=== PATIENT | male | born 1995 | race Caucasian/White ===

== ENCOUNTER 2021-05-15 06:39 | Observation (INO) | payer SELFPAY ==
[2021-05-15] VITALS (12 sets, daily range): BP systolic 106–186; BP diastolic 58–102; PULSE 72–108; RESP 14–18; TEMP 36.4–37.3; O2SAT 92–99; BMI 29.7; BMI 29.8
--- NOTE | 2021-05-15 | APP_PTH ---
PATIENT: GUALBERTO FLOWERS LOC: MS2 U#:[id number] AGE/SX: 25/M ROOM: [facility] [place] RE05/15/[address]: Dr. Latanya Miller MD : 1995 BED: 1 DIS: 05/16/2021 SPEC #: [id number] RECD: 05/15/21 14:51 STATUS: MARIA D REDeyanira #: [id number] VERA: 05/15/21 00:[address]: Latanya Miller DEPT: SURGICAL PATHOLOGY RECD BY: Benito Mccall ENTERED: 05/16/21 09:11 SP TYPE: APPENDIX OT DR: No Primary Care Phys Tissues: Appendix, NOS Procedures: Surgery Specimen Level III HEADER OPERATION: Laparoscopic appendectomy PRE-OP DIAGNOSIS: Acute appendicitis TISSUE SUBMITTED: Appendix MICROSCOPIC DIAGNOSIS Appendix, appendectomy: Appendix, negative for acute inflammation. See comment. MARC:eulalia 05/18/2021 COMMENT The entire appendix is examined. The lumen shows fecal material and hemorrhage. No evidence of acute inflammation in the mucosa, appendicular wall and periappendiceal adipose tissue. Clinical correlation and appropriate follow up are necessary. Case has been reviewed in consultation with Dr. Maldonado who concurs with the above diagnosis. IDC:AM MICROSCOPIC DESCRIPTION Slides are reviewed. GROSS DESCRIPTION Received in fixative is one container labeled with the patient's name and designated appendix. The specimen consists of an appendix measuring 7 cm in length and up to 0.5 cm in diameter. The attached periappendiceal adipose tissue measures up to 2.5 cm in width. The serosa is congested. No obvious perforation is identified. The mucosa is focally congested. The lumen is filled with fecal material. No fecalith is identified. District Branch Manager sections are submitted in one cassette. / MARC:eulalia 05/16/21 The rest of the appendix is submitted in two more cassettes, 2 & 3. / MARC:eulalia 05/17/21 TC:5 CPT: 58743
--- NOTE | 2021-05-15 07:07 | EDS_ITS ---
HPI HPI - GI History of Present Illness Chief Complaint: Abd Pain Detail of Chief Complaint: Nominal pain that started yesterday around 3 PM Informant: patient Abdominal Pain/Flank Pain Onset: Yesterday Current Severity: 02/20 Diarrhea/Melena/Hematochezia GI Symptom: Negative for Diarrhea, Melena and Hematochezia Narrative Narrative: Patient presents to the emergency department complaint of abdominal pain that started yesterday after eating lunch. Patient states that he ate [employer]. Pain is been continuous in the upper abdomen. Sometimes passing gas or belching will relieve the discomfort for short time but then it comes back. He denies nausea or vomiting. He denies fever. He denies reflux. Patient denies blood in stool or black tarry stool. He denies urinary symptoms. Patient has not had pain like this before. [facility] Medical History (Updated 05/15/21 @ 09:[address] Sharon Chaparro, DO) Polycystic kidney disease Home Medications cetirizine [Zyrtec] 10 mg PO DAILY 05/15/21 [History Last Taken Unknown] Allergy/AdvReac Type Severity Reaction Status Date / Time No Known Allergies Allergy Verified 05/15/21 06:40 Surgical History (Updated 05/15/21 @ 06:43 by Nanette Yañez) History of mandibular surgery Social History Smoking Status: Never smoker ROS [facility] ED Constitutional Constitutional ED: Reports systems reviewed and no addt'l complaints, except as documented; Denies body ache(s), change in weight or chills Eyes Eyes: Denies acute decrease in peripheral vision, change in vision, double vision or loss of vision ENT ENT ED: Reports none; Denies ear pain, lip swelling, loss taste/smell, neck pain, otalgia or sore throat Cardiovascular Cardiovascular: Reports none; Denies abdominal pain, chest pain with activity, leg edema, lightheadedness, palpitations, rapid heart rate or syncope Respiratory/Chest Respiratory/Chest: Reports none; Denies change in mental status, dry cough, dyspnea, hemoptysis, shortness of breath at rest or shortness of breath with exertion Gastrointestinal Gastrointestinal: Reports none and abdominal pain; Denies change in stool character, diarrhea, hematemesis, hematochezia, melena, rectal bleeding or vomiting Genitourinary Genitourinary ED: Reports none; Denies abdominal discomfort, anuria, dysuria, genital pain or polyuria Musculoskeletal Musculoskeletal: Reports none; Denies arthralgias, back pain, difficulty walking, extremity pain, muscle weakness or myalgias Integumentary Reports none; Denies abscess or rash Neurologic Neurologic: Reports none; Denies abnormal gait, confusion, focal weakness, frequent falls, headache(s), loss of vision, numbness, paresthesias, radicular pain, vertigo or weakness Psychiatric Psychiatric: Reports systems reviewed and no addt'l complaints, except as documented and none; Denies behavioral changes, confusion, difficulty concentrating, hallucinations, suicidal ideation, tactile hallucinations or visual hallucinations Endocrine Endocrinology: Denies none, cold intolerance, excessive sweating, fatigue or heat intolerance Hematologic/Lymphatic Hematologic/Lymphatic: Reports none; Denies anemia, easy bleeding or easy bruising Allergic/Immunologic Allergic/Immunologic ED: Denies as per HPI, none, lip swelling, mouth swelling, throat swelling, tongue swelling or hives EXAM Physical Exam Const Vital Signs: 05/15/21 06:40 Temperature 98 F Temperature Source Temporal Pulse Rate 95 Respiratory Rate 16 Blood Pressure 186/102 H Blood Pressure Mean 130 Pulse Ox 98 Positive well nourished and well developed General Appearance ED: well developed and NAD HEENT Reports TM's clear and moist mucous membranes normocephalic and atraumatic; Negative for trauma or tenderness Tympanic Membrane ED: Yes TM's clear Eyes PERRL and EOMs intact bilaterally General Eye ED: Negative for pale conjunctiva or scleral icterus Neck no lymphadenopathy, supple and no JVD General: Negative for tenderness Chest Wall inspection of chest normal and palpation of chest normal Chest: Negative for tenderness Resp normal respiratory effort and clear to auscultation bilaterally Effort and Inspection: Negative for respiratory distress or pain with movement Auscultation: Negative for rhonchi, wheezes or diminished lung sounds Cardio regular rate, regular rhythm, S1 normal heart sound, S2 normal heart sound and no murmurs Peripheral Pulses: pulses 2+ throughout GI normal to inspection, nondistended, normoactive bowel sounds, soft to palpation, non-distended and no masses GI Narrative: Patient has tenderness palpation over right upper quadrant with a positive Radnolph sign. Patient has guarding. Patient also with tenderness over the epigastric region. There is no rebound, rigidity, or peritoneal signs. Palpation: tender Back/Spine no CVA tenderness and no thoracic nor lumbar tenderness Extremity normal to inspection General Extremety ED: Negative for edema General Extremity: Negative for edema Neuro oriented x3, CN's II-XII intact bilaterally, no sensory deficits noted and gait normal Sensorium / Orientation: awake, alert, oriented to person, oriented to place and oriented to time Motor Exam: strength 5/5 throughout and strength abnormal Psych mental status grossly normal Skin no rashes or lesions noted and no wounds MDM MDM MDM Narrative Medical decision making narrative: IV line established on arrival. Patient was medicated with Zofran and 1 mg of Dilaudid. He did have good pain relief with that. CT scan was concerning for appendicitis with appendicolith and enlarged appendix. Patient also noted to have an elevated lipase and etiology is unclear as to why. Case discussed with general surgeon who will evaluate patient and take the OR for appendectomy. I was asked to give patient Zosyn and order a Covid rapid test. Lab Data Attestation: I reviewed the patient's lab results. Labs: Laboratory Results - last 24 hr 05/15/21 05/15/21 07:30 07:30 WBC 14.8 H RBC 4.79 Hgb 15.0 Hct 43.2 MCV 90.2 MCH 31.3 MCHC 34.7 RDW Std Deviation 38.1 RDW Coeff of Camille 11.5 L Plt Count 232 MPV 10.6 Immature Gran % (Auto) 0.400 Neut % (Auto) 78.8 H Lymph % (Auto) 10.6 L Tompkins % (Auto) 8.0 Eos % (Auto) 1.9 Baso % (Auto) 0.3 Absolute Neuts (auto) 11.6 H Absolute Lymphs (auto) 1.57 Nucleated RBC % 0 Sodium 138 Potassium 3.7 Chloride 106 Carbon Dioxide 30.0 Anion Gap 2 L BUN 12 Creatinine 0.90 Estim Creat Clear Calc 123.29 Est GFR (MDRD) Af Amer 129 Est GFR (MDRD) Non-Af 107 BUN/Creatinine Ratio 13.3 Glucose 114 H Calcium 8.6 Total Bilirubin 1.60 H AST 20 ALT 48 Alkaline Phosphatase 67 Total Protein 7.6 Albumin 4.0 Globulin 3.6 Albumin/Globulin Ratio 1.1 Lipase 2277 H Radiography Diagnostic Testing: Clinical Impression(s) from Imaging Studies Abdomen/Pelvis CT 05/15/21 07:07 IMPRESSION: Findings in keeping with the acute appendicitis. Calcified appendicolith is seen within the appendix. Small amount of free fluid is seen in the pelvis. Polycystic kidney disease. Nonobstructive calculus in the left kidney. Fatty infiltration of the liver. Electronically Signed: Prashanth Pace MD at 8:18 EDT , Service support , Discharge Plan Triage Chief Complaint: Abd Pain ED Provider: Sharon Chaparro Dx/Rx/DC Orders Clinical Impression: Abdominal pain, Acute appendicitis Prescriptions: No Action cetirizine [Zyrtec] 10 mg Tablet 10 mg PO DAILY RF: 0 Primary Care Provider: Care Physician,No Primary Referrals: Care Physician,No Primary [Primary Care Provider] - Disposition Disposition: Acute Care [facility]
--- NOTE | 2021-05-15 07:07 | CT_ITS ---
STUDY: CT ABDOMEN AND PELVIS WITHOUT CONTRAST REASON FOR EXAM: Male, 25 years old. Right-sided abdominal pain. History of polycystic kidney disease. RADIATION DOSAGE (If Supplied By Facility): CTDIvol = ( 13.90 ) mGy, DLP = ( 728.44 ) mGycm TECHNIQUE: Transaxial images were obtained from the dome of the diaphragm to the symphysis pubis without oral contrast, and without intravenous contrast. Sagittal and coronal images were reconstructed. Individualized dose optimization techniques were used for this CT. COMPARISON: None. FINDINGS: Mild degree of increased markings at the lung bases suggest some bibasilar atelectasis. The visualized portions of the heart are within normal limits. There is decreased attenuation of the liver consistent with steatosis. Normal gallbladder and extrahepatic biliary system. Normal spleen. Normal pancreas. Normal bilateral adrenal glands. Both kidneys are enlarged. Multiple cysts are seen in both kidneys in keeping with the patient''s history of polycystic kidney disease. No evidence of hydronephrosis. There is a 3 mm nonobstructive calculus in the lower pole calyx of the left kidney. There is a small hiatal hernia. Normal small intestine. Normal colon. There is a tubular, thick-walled appendix (>7mm), consistent with acute appendicitis. There is a 4.4 mm appendicolith in the appendix. Small lymph nodes are seen in the mesenteric fat in the right lower quadrant suggestive of mesenteric adenitis. Normal abdominal aorta. Normal inferior vena cava. Normal retroperitoneum. Normal urinary bladder. Small amount of free fluid is seen in the pelvis. Normal abdominal wall. Normal osseous structures. CT/Abdomen/Pelvis without Cont IMPRESSION: Findings in keeping with the acute appendicitis. Calcified appendicolith is seen within the appendix. Small amount of free fluid is seen in the pelvis. Polycystic kidney disease. Nonobstructive calculus in the left kidney. Fatty infiltration of the liver. Electronically Signed: Prashanth Pace MD at 8:18 EDT , Service support ,
[2021-05-15] MEDS: Ondansetron 4 MG/2 ML Vial IV (07:37)
[2021-05-15] MEDS: HYDROmorphone 1 MG/ML Syringe IV (07:37)
[2021-05-15] MEDS: 0.9% Normal Saline 1,000 ML 125 ML IV (07:38)
[2021-05-15 07:40] LABS: Absolute Lymphocyte Count 1.57 X10^3/uL (0.83-4.51); Absolute Neutrophil Count 11.6 X10^3/uL (2.0-7.7); Basophil# 0.04 X10^3/uL; Basophil% 0.3 % (0-1); Eosinophil# 0.28 X10^3/uL; Eosinophils% 1.9 % (0-5); Hematocrit 43.2 % (40-54); Lymphocyte # 1.57 X10^3/ul (0.83-4.51); Lymphocyte % 10.6 % (19-41); Mean Corp Hgb Conc 34.7 g/dL (32-36); Mean Corpuscular Hgb 31.3 pg (27.0-32.0); Mean Corpuscular Volume 90.2 fL (80-94); Mean Platelet Vol. 10.6 fl (6.2-12.0); Monocyte# 1.18 X10^3/uL; NRBC Flagged by Analyzer 0 % (0-5); Neutrophil # 11.64 X10^3/uL (2.7-7.7); Neutrophil % 78.8 % (47-70); Platelet Count 232 K/mm3 (150-450); RBC Distribution Width CV 11.5 % (11.6-14.6); RBC Distribution Width SD 38.1 fl (35.1-43.9); Red Blood Count 4.79 M/mm3 (4.6-6.2); White Blood Count 14.8 K/mm3 (4.4-11.0)
[2021-05-15 08:03] LABS: ALB/GLOB Ratio 1.1 RATIO (0.9-2.4); AST(SGOT) 20 U/L (15-37); Alanine Aminotransfer ALT/SGPT 48 U/L (16-61); Alkaline Phosphatase 67 U/L (45-117); Anion Gap 2 (5-15); BUN 12 mg/dL (7-18); BUN/Creat Ratio 13.3 RATIO (10-20); Calcium,Total 8.6 mg/dL (8.5-10.1); Chloride 106 mmol/L (98-107); EST Glomerular Filtration Rate 107 mL/min (>60); Est Glom Filt Rate - Afr Amer 129 mL/min (>60); Estimated Creatinine Clearance 123.29 ml/min; Globulin 3.6 g/dL (2.2-4.2); Glucose 114 mg/dL (74-106); Lipase 2277 U/L (73-393); Potassium 3.7 mmol/L (3.5-5.1); Protein, Total 7.6 g/dL (6.4-8.2); Sodium Level 138 mmol/L (136-145)
--- NOTE | 2021-05-15 09:29 | HP.PCM.SX_ITS ---
HPI - General General Date of Admission: 05/15/21 HPI Narrative GUALBERTO FLOWERS, is a 25 M who presents to the ER due to abdominal pain mid abdomen. Patient states it started about 3 PM yesterday and has not changed. Patient last ate yesterday. Patient had a white blood count of 14.8 and elevated lipase of 2200. CT on pelvis consistent with acute appendicitis but no changes of pancreatitis on CT. [facility] Medical History Hypertension Polycystic kidney disease Home Medications cetirizine [Zyrtec] 10 mg PO DAILY 05/15/21 [History Last Taken 05/12/21] Allergy/AdvReac Type Severity Reaction Status Date / Time No Known Allergies Allergy Verified 05/15/21 06:40 Surgical History History of mandibular surgery Social History Smoking Status: Never smoker Vital Signs Vital Signs Vital Signs: 05/15/21 06:40 Temperature 98 F Temperature Source Temporal Pulse Rate 95 Respiratory Rate 16 Blood Pressure 186/102 H Blood Pressure Mean 130 Pulse Ox 98 Weight Weight: 201 lb 4.513 oz Body Mass Index (BMI) 29.7 Physical Exam Const alert, oriented x3 and no apparent distress HEENT normocephalic and head/scalp atraumatic Resp normal respiratory effort Cardio regular rate GI soft to palpation; Negative for non-distended Palpation: tender other (Mostly supraumbilical, no guarding or rebound); Negative for guarding Extremity no clubbing, cyanosis or edema Neuro CN's II-XII intact bilaterally Psych mental status grossly normal Results Lab / Micro Data Result Diagrams: 05/15/21 07:30 05/15/21 07:30 Labs: Laboratory Results - last 24 hr 05/15/21 07:30: WBC 14.8 H, RBC 4.79, Hgb 15.0, Hct 43.2, MCV 90.2, MCH 31.3, MCHC 34.7, RDW Std Deviation 38.1, RDW Coeff of Camille 11.5 L, Plt Count 232, MPV 10.6, Immature Gran % (Auto) 0.400, Neut % (Auto) 78.8 H, Lymph % (Auto) 10.6 L, [place] % (Auto) 8.0, Eos % (Auto) 1.9, Baso % (Auto) 0.3, Absolute Neuts (auto) 11.6 H, Absolute Lymphs (auto) 1.57, Nucleated RBC % 0 05/15/21 07:30: Sodium 138, Potassium 3.7, Chloride 106, Carbon Dioxide 30.0, Anion Gap 2 L, BUN 12, Creatinine 0.90, Estim Creat Clear Calc 123.29, Est GFR (MDRD) Af Amer 129, Est GFR (MDRD) Non-Af 107, BUN/Creatinine Ratio 13.3, Glucose 114 H, Calcium 8.6, Total Bilirubin 1.60 H, AST 20, ALT 48, Alkaline Phosphatase 67, Total Protein 7.6, Albumin 4.0, Globulin 3.6, Albumin/Globulin Ratio 1.1, Lipase 2277 H Radiology Impression Abdomen/Pelvis CT 05/15/21 07:07 IMPRESSION: Findings in keeping with the acute appendicitis. Calcified appendicolith is seen within the appendix. Small amount of free fluid is seen in the pelvis. Polycystic kidney disease. Nonobstructive calculus in the left kidney. Fatty infiltration of the liver. Electronically Signed: Prashanth Pace MD at 8:18 EDT , Service support , Assessment & Plan Assessment/Plan (1) Acute appendicitis: PLAN: 1. Discussed procedure laparoscopic appendectomy, possible open, possible bowel resection along with the risk but not limited to bleeding, infection/abscess, injury to another organ (small bowel, colon, etc.), adhesion, hernia at incision sites, and anesthesia. Patient no further question this time. Latanya Miller M.D. Pager: [phone] [facility] [address] [place] [address], [address] [place] [address] Office: [phone] Procedure Criteria Type of Procedure Procedure Type: Elective Elective Risks - COVID COVID Risk Discussion: The surgeon/proceduralist and patient have discussed in detail the risk of exposure to and/or potential harm posed by the COVID-19 virus with having a surgery/procedure at this time versus the risk of delaying the surgery/procedure. It is not possible to know either the risk of delaying the surgery or procedure or chance of getting an infection with perfect accuracy, but a joint decision was made between the patient and the surgeon/proceduralist to proceed at this time with the scheduled surgery/procedure as indicated on the consent form.
--- NOTE | 2021-05-15 10:18 | PCS.PANDOC ---
PANDEMIC DOCUMENTATION INITIATED: Date: 02/26/2021 Time: 190
--- NOTE | 2021-05-15 11:04 | NURSING ---
pt to surgery
[2021-05-15] MEDS: Lactated Ringers 1,000 ML 100 ML IV ×2 (11:15→12:00)
[2021-05-15] MEDS: Lidocaine 1% /Epi 1:100 (20ml) 20 ML Vial (11:50)
--- NOTE | 2021-05-15 12:27 | PCM.OPRPT ---
Report of Operation Date of Procedure: 05/15/21 Pre-Operative Diagnosis: Acute appendicitis with appendicolith Post-Operative Diagnosis: Same Surgery/Procedure Performed:: Laparoscopic appendectomy Surgeon: Latanya Miller Type of Anesthesia: General/Supplemental Anesthesiologist: Minh Hubbard Special Medications: Zosyn 4.5 g IV x1 given in the ER for acute appendicitis Specimen's removed: Appendix Estimated Blood Loss (mL): < 10 cc Fluids Replaced: Per anesthesia Description of Procedure: Indications: 25-year-old male presented to the ER with mid abdominal pain starting yesterday afternoon. On workup he was found to have acute appendicitis on CT and a leukocytosis of 14.8. Patient was started on antibiotics in the ER for acute appendicitis-Zosyn 4.5 g IV x1 for acute appendicitis Description of the procedure: The patient was placed on operating table in supine position. General anesthesia was induced. A timeout was completed verifying correct patient, procedure, position and special equipment prior to beginning procedure. Abdomen was prepped and draped in usual sterile fashion. Incision was made in the natural skin line above the umbilicus with a 15 blade scalpel. The fascia was elevated and incised. Entry into the peritoneum was confirmed visually and no bowel was noted in the vicinity of the incision. The Ramos trocar was placed under direct vision. Abdomen insufflated with a pressure of 12-15 mmHg. Patient tolerated insertion well. The scope was inserted and the abdomen inspected. No injuries from initial trocar placement were noted. Minimal amount of fluid was seen in the right lower quadrant. An direct visualization 2 -5 mm trocars were placed one above the symphysis pubis and below the hairline and one in the left lower quadrant lateral to the rectus muscle. Care is taken to avoid injury to the bladder and inferior epigastric vessels. The table was placed in Trendelenburg position with the right side elevated. The appendix was grasped with atraumatic grasper and elevated. It was noted to be inflamed. A window was developed in the mesoappendix at the point between the base of the appendix and the cecum. An endoscopic 45 mm linear cutting stapler blue load was then used to divide and staple the base of the appendix. There is noted to be small bowel bleeding at the staple line 5 mm clip charge account authorizer was used. Hemostasis was achieved. Enseal was used to divide the mesoappendix The appendix was withdrawn into the Ramos trocar after being placed endoscopically retrieval bag. Appendix was sent to pathology. The appendiceal stump was then irrigated and hemostasis was assured. Fluid was suctioned no other pathology was identified. Secondary trochars were removed under direct visualization. No bleeding was noted trocar sites. The laparoscope withdrawn and the umbilical trocar removed. The abdomen was allowed to collapse. Local anesthesia of 20 mL of 1% lidocaine with epinephrine was used at the incision sites. The umbilical trocar site was closed with the [id number] 0 Vicryl suture. The skin was closed up to clear sutures of 4-0 Monocryl and Steri-Strips. The patient was extubated. The patient tolerated the procedure well and was taken to the postanesthesia care unit in satisfactory condition. Complications None
--- NOTE | 2021-05-15 12:30 | EX.PCM.DISCH ---
Discharge Instructions Diet Discharge Diet: Light diet - advance as tolerated Activity Discharge Activity: May Not Drive (while taking narcotic pain medications.) May shower in (days): 1 Lifting Restrictions: no lifting >20 lbs x 2 wks, no strenuous exercise for 4 wks Dressing / Incision Call your doctor if your incision/area has: Continuous Slow Oozing, Sudden Increased Bleeding, Increased Pain/ Swelling, Increased Redness, Foul Smelling Discharge and Swelling at the incision site Call your doctor if you observe: Fever of 101 or Higher Remove Dressing in: 2 days Cleanse incision/area with: Soap & Water Additional Dressing/Incision Instructions:: Steri-Strips will fall off in 7 to 10 days, if they do not fall off okay to remove after 10 days. Follow Up Care Please Follow Up With: Latanya Miller MD When: Call the office for a follow-up appointment 2 weeks; after 5 PM and on the weekends call [phone] with any concerns. Test Results: Test results from this visit will be discussed in further detail at your follow-up appointment, if applicable. Discharge Plan Admission Admit Date/Time: 05/15/21 09:30 Attending Provider: Latanya Miller Primary Care Provider: Care Physician,Perri Primary Discharge Orders/Prescriptions Prescriptions: New oxycodone-acetaminophen [Percocet] 5-325 mg tablet 1 - 2 tab PO Q6H PRN (Reason: pain) 3 Days Qty: 14 RF: 0 Continued cetirizine [Zyrtec] 10 mg Tablet 10 mg PO DAILY RF: 0 Referrals / Follow Up: Care Physician,Perri Primary [Primary Care Provider] - Disposition Disposition (needs filled in before D/C Order can be placed): Home, Self Care
[2021-05-15] MEDS: 0.9% Saline Lock 10 ML Syringe IV ×2 (13:48→21:43)
[2021-05-15] MEDS: Morphine 2 MG/ML Syringe IV ×2 (13:48→21:43)
[2021-05-15] MEDS: Piperacil/Tazobactam 3.375 GM Q8 PREMIX IV ×2 (15:29→21:37)
[2021-05-16 01:30] VITALS: BP 132/74; PULSE 88; RESP 18; TEMP 36.7; O2SAT 94
[2021-05-16] MEDS: Lactated Ringers 1,000 ML 100 ML IV (01:55)
[2021-05-16 05:41] LABS: Lipase 308 U/L (73-393)
[2021-05-16] MEDS: Piperacil/Tazobactam 3.375 GM Q8 PREMIX IV (06:05)
--- NOTE | 2021-05-16 07:14 | PN.SURG_ITS ---
Subjective Subjective Patient denies any abdominal pain. His previous pain before surgery has resolved. Patient's lipase was also normal at 308 this morning Objective Data Objective Data Vital Signs: Vital Signs Temp Pulse Resp BP Pulse Ox 98.1 F 88 18 132/74 H 94 05/16/21 01:30 05/16/21 01:30 05/16/21 01:30 05/16/21 01:30 05/16/21 01:30 Oxygen Delivery Method Room Air Weight: 202 lb Body Mass Index (BMI) 29.8 Intake & Output: Intake and Output for Last 24 Hours 05/14/21 05/15/21 05/16/21 23:59 23:59 23:59 Intake Total 1939.58 / 1939.58 793.33 / 793.33 Balance 1939.58 / 1939.58 793.33 / 793.33 Lab / Micro Data Result Diagrams: 05/15/21 07:30 05/15/21 07:30 Labs: Laboratory Results - last 24 hr 05/15/21 07:30: WBC 14.8 H, RBC 4.79, Hgb 15.0, Hct 43.2, MCV 90.2, MCH 31.3, MCHC 34.7, RDW Std Deviation 38.1, RDW Coeff of Camille 11.5 L, Plt Count 232, MPV 10.6, Immature Gran % (Auto) 0.400, Neut % (Auto) 78.8 H, Lymph % (Auto) 10.6 L, Tucker % (Auto) 8.0, Eos % (Auto) 1.9, Baso % (Auto) 0.3, Absolute Neuts (auto) 11.6 H, Absolute Lymphs (auto) 1.57, Nucleated RBC % 0 05/15/21 07:30: Sodium 138, Potassium 3.7, Chloride 106, Carbon Dioxide 30.0, Anion Gap 2 L, BUN 12, Creatinine 0.90, Estim Creat Clear Calc 123.29, Est GFR (MDRD) Af Amer 129, Est GFR (MDRD) Non-Af 107, BUN/Creatinine Ratio 13.3, Glucose 114 H, Calcium 8.6, Total Bilirubin 1.60 H, AST 20, ALT 48, Alkaline Phosphatase 67, Total Protein 7.6, Albumin 4.0, Globulin 3.6, Albumin/Globulin Ratio 1.1, Lipase 2277 H 11/03/21 04:50: Lipase 308 Micro: Microbiology 05/15/21 12:04 Wound - Abdominal Gram Stain - Final 05/15/21 09:35 Nasal Secretion SARS-CoV-2 Antigen (Rapid) - Final Radiography Diagnostic Testing: Radiology Impression Abdomen/Pelvis CT 05/15/21 07:07 IMPRESSION: Findings in keeping with the acute appendicitis. Calcified appendicolith is seen within the appendix. Small amount of free fluid is seen in the pelvis. Polycystic kidney disease. Nonobstructive calculus in the left kidney. Fatty infiltration of the liver. Electronically Signed: Prashanth Pace MD at 8:18 EDT , Service support , Physical Exam Resp normal respiratory effort Cardio regular rate GI GI Narrative: Abdomen: Soft, nondistended, tender near incision's dressed clean dry and intact, no peritoneal signs Assessment & Plan Assessment/Plan (1) Elevated lipase: (2) S/P laparoscopic appendectomy: PLAN: Patient denies any abdominal pain. His lipase is back to normal unsure the exact cause of the elevated lipase. Patient able DC home if tolerates diet. Latanya Miller M.D. Pager: [phone] [facility] [address] [place] [address], [address] [place] [id number] Office: [phone]
[2021-05-16 08:25] VITALS: BP 123/75; PULSE 91; RESP 18; TEMP 36.4; O2SAT 94
[2021-05-16 11:53] VITALS: BP 119/75; PULSE 82; RESP 18; TEMP 36.8; O2SAT 95
== END 2021-05-16 12:33 | disposition home or self-care (01) ==
LOC: ED 09:31 → MS2 09:58
PROVIDERS: Admitting Provider Surgery; Emergency Provider Emergency Medicine; Visit Provider Surgery
PROC: 0DTJ4ZZ Resection of Appendix, Percutaneous Endoscopic Approach (ICD-10-PCS; CPT 44970; principal; 2021-05-15 16:45)
DX: K35.80 Unspecified acute appendicitis (principal); K38.1 Appendicular concretions; Q61.3 Polycystic kidney, unspecified; I10 Essential (primary) hypertension
CPT/HCPCS: 00840; 44970; 36415; 74176; 80053; 83690; 85025; 87015; 87070; 87075; 87116; 87205; 87206; 87426; 88304; 96361; 96365; 96366; 96375; 96376; 99218; 99284; J7030; J7120; A4216; C1760; G0378; J2405